=== PATIENT | female | born 1990 | race Caucasian/White ===

== ENCOUNTER → 2016-10-11 | Outpatient (CLI) | payer BC, OTHER ==
[~2016-10-11] MED LIST: BCP DAILY
== END | disposition home or self-care (01) ==
LOC: C.PAPS 10:44
PROVIDERS: ATTEND Physician Assistant
DX: Z12.4 Encounter for screening for malignant neoplasm of cervix (principal)

== ENCOUNTER → 2017-06-04 | Outpatient (CLI) | payer BC ==
[2017-06-04 09:51] LABS: PROLACTIN 14.84 ng/mL
[2017-06-04 09:52] LABS: FOLLICLE STIMULAT HORMONE 8.39 IU/L
== END | disposition home or self-care (01) ==
LOC: C.LAB1850 07:07
PROVIDERS: ATTEND Obstetrics & Gynecology
DX: Z31.41 Encounter for fertility testing (principal)

== ENCOUNTER → 2017-06-11 | Outpatient (CLI) | payer BC ==
--- NOTE | 2017-06-11 11:31 | DIAGNOSTIC IMAGING REPORT ---
HYSTEROSALPINGOGRAM CLINICAL HISTORY: Infertility. COMPARISON STUDY: No previous studies for comparison. Fluoroscopy time: 0.2 minutes. FINDINGS: Hysterosalpingogram was performed by Dr. Martines. The cervix was cannulated and water-soluble contrast was instilled. 3 fluoroscopic images demonstrate normal uterine morphology with patent bilateral fallopian tubes. There was free spillage bilaterally. No abnormality was identified. A few gas bubbles were noted. IMPRESSION: Normal hysterosalpingogram. Patent bilateral fallopian tubes. Electronically signed by: Frederic Woodard M.D. 06/11/2017 11:30 AM Dictated Date/Time: 06/11/2017 11:29 AM
--- NOTE | 2017-06-11 11:42 | OPERATIVE REPORT ---
DATE OF OPERATION: 06/11/2017 PREOPERATIVE DIAGNOSIS: Female infertility. POSTOPERATIVE DIAGNOSIS: Same. PROCEDURE: Hysterosalpingogram. SURGEON: Dr. Cristhian Martines. STRAIGHT TRUCK DRIVER: None. ESTIMATED BLOOD LOSS: None. COMPLICATIONS: None. FINDINGS: Normal uterus and fallopian tubes with good free spill. DESCRIPTION OF PROCEDURE: Discussed the procedure with the patient risks and benefits. The procedure was done sterilely. Speculum placed in the vagina. Cervix visualized, grasped with single tooth tenaculum and then the cervical servomechanism designer with the radiopaque dye was attached to the cervix. Note Betadine had been applied to the cervix as well. We injected dye and normal appearing uterus and good free spill of dye from both left and right fallopian tubes. Thus, a normal procedure. Instruments removed from the cervix and vagina. The patient tolerated the procedure well. I attest to the content of the Intraoperative Record and any orders documented therein. Any exception s are noted below.
== END | disposition home or self-care (01) ==
LOC: C.RAD 10:38
PROVIDERS: ATTEND Obstetrics & Gynecology
DX: Z31.41 Encounter for fertility testing (principal)

== ENCOUNTER → 2017-06-29 | Outpatient (CLI) | payer BC | END | disposition home or self-care (01) | LOC: C.LAB1850 10:46 | PROVIDERS: ATTEND Obstetrics & Gynecology | DX: Z31.41 Encounter for fertility testing (principal) ==

== ENCOUNTER → 2017-07-11 | Outpatient (CLI) | payer BC | END | disposition home or self-care (01) | LOC: C.LAB1850 13:15 | PROVIDERS: ATTEND Physician Assistant | DX: R94.6 Abnormal results of thyroid function studies (principal) ==

== ENCOUNTER → 2017-11-18 | Outpatient (CLI) | payer BC | END | disposition home or self-care (01) | LOC: C.LAB1850 12:18 | PROVIDERS: ATTEND Physician Assistant | DX: R94.6 Abnormal results of thyroid function studies (principal) ==

== ENCOUNTER → 2017-12-10 | Outpatient (CLI) | payer BC | END | disposition home or self-care (01) | LOC: C.LAB1850 13:28 | PROVIDERS: ATTEND Obstetrics & Gynecology | DX: N97.9 Female infertility, unspecified (principal) ==

== ENCOUNTER 2020-07-31 07:54 | Inpatient (IN) ==
[2020-07-31] MEDS ORDERED: OXYTOCIN 30 UNITS/500 ML BAG IV PRN ×3 (08:25→23:32)
[2020-07-31] MEDS ORDERED: PATIENT'S HEIGHT AND/OR WEIGHT NEEDED SCH (08:45)
[2020-07-31 08:57] LABS: Hematocrit (blood only) 35.9 % (37-47); Hemoglobin 12.7 g/dL (12.0-16.0); Mean Corpuscular Hgb Conc 35.4 g/dL (32-36); Mean Corpuscular Volume 87.6 fL (80-100); Mean Platelet Volume 11.2 fL (7.4-10.4); Platelet Count 131 K/uL (130-400); RDW Coefficient of Variation 13.3 % (11.5-14.5); RDW Standard Deviation 42.7 fL (36.4-46.3); White Blood Count 8.33 K/uL (4.8-10.8)
[2020-07-31] MEDS: LACTATED RINGER'S 1,000 ML IV PRN ×3 (09:30→18:32)
--- NOTE | 2020-07-31 11:00 | History & Physical Report ---
Date of Service July 31, 2020 Assessment & Plan (1) PROM (premature rupture of membranes): (2) Lab test positive for detection of COVID-19 virus: (3) Meconium in amniotic fluid: admit, iv, labs. fhts categ 1. offered pitocin augmentation now. epidural ok when desires. reviewed mec stained fluid. patient and partner given chance to ask ?s and deny further questions at this time. Admission and Anticipated Discharge Date Admission Date: July 31, 2020 History of Present Illness Chief Complaint: water broke at 645am today Primary Care Provider: NO PCP 30yo at 37+wks ega presents with cc as noted. Some ctx, not too painful. Fluid was clear at first but since being here noted to have meconium. +FM. PNC uncomplicated PNL rh pos, ri, gbs neg OBH: g1 GYNH: nl pap, no stds pmh: ibs Allergies Allergy/AdvReac Type Severity Reaction Status Date / Time Penicillins Allergy Intermediate HIVES Verified 07/29/20 15:57 amoxicillin Allergy Verified 07/29/20 15:57 ciprofloxacin Allergy Verified 07/29/20 15:57 Home Medications Medication Instructions Recorded Confirmed Type calcium carbonate [Tums 500] 500 mg PO BID 07/13/20 07/29/20 History famotidine [Pepcid AC] 20 mg PO DAILY 07/13/20 07/29/20 History prenat.vits,ricardo,[id number] 1 tab PO DAILY 07/13/20 07/29/20 History [ Vitamin] Patient History Medical History (Updated 07/31/20 @ 11:04 by Sadie Montano MD, FACOG) Female infertility, unspecified MRSA (methicillin resistant Staphylococcus aureus) Lower L abd. and L leg 2011 Surgical History History of foot surgery to remove a needle she stepped on History of knee surgery torn meniscus right S/P wisdom tooth extraction Family History Mother Kidney disease kidney removed Hypertension Father Dyslipidemia Aunt ALS (amyotrophic lateral sclerosis) paternal Denies family history of Ovarian cancer Breast cancer Colorectal cancer Social History Smoking Status: Never smoker Second Hand Exposure: No; Hx Alcohol Use: No Hx Substance Use: No Preferred Language: Divehi Beliefs That Will Affect Care: None marital status: marital status details: Domo (33)- [phone] Current Living Situation: Spouse Current Living Situation Comment: , no pets current occupational status: employed current occupation: education Feels Safe at Home: Yes Assistive Devices: None Physical Exam 2 Constitutional: WD/WN, vitals as above Respiratory: normal respiratory effort, lungs clear to auscultation Cardiovascular: Rate/Rhythm: regular rate and regular rhythm Gastrointestinal (Abdomen): soft gravid nt Musculoskeletal: no edema nontender calves Neurologic: grossly normal Psychiatric: A+Ox3, euthymic affect Genitourinary: OB Exam Abdomen: + estimated weight (7-8#, cephalic) Manual OB Exam: + cervical dilation 4 cm, + cervical effacement (75%), + station -2 and + amniotic fluid (gross srom) meconium OB Exam Monitor Tracing: + external FHT monitor used (140 mod variability), + external uterine monitor used (q2-4), + category I and + normal FHT variability Results & Data ([facility]) Vital Signs (Past 12 Hours) Vital Signs Temp Pulse Resp BP 07/31/20 08:02 98.2 F 90 20 130/79 Coding Level of Care Code None Diagnoses PROM (premature rupture of membranes) O42.90 Lab test positive for detection of COVID-19 virus U07.1 Meconium in amniotic fluid P96.83
[2020-07-31] MEDS ORDERED: BUPIVACAINE 0.25% 30 ML VIAL ONE (13:11)
[2020-07-31] MEDS ORDERED: ePHEDrine sulfate 50 MG/ML AMP ONE (13:11)
[2020-07-31] MEDS ORDERED: SODIUM CHLORIDE 0.9% INJ 10 ML VIAL ONE (13:11)
[2020-07-31] MEDS ORDERED: fentaNYL citrate 100 MCG/2 ML VIAL ONE (13:11)
[2020-07-31] MEDS ORDERED: fentaNYL 2MCG/ML ROPIVACAINE 1.25MG/ML 100 ML BAG EPI ONE (13:12)
[2020-07-31] MEDS ORDERED: ePHEDrine sulfate 50 MG/ML AMP IV PRN (13:50)
[2020-07-31] MEDS ORDERED: diphenhydrAMINE 50 MG/ML VIAL IV PRN (13:50)
[2020-07-31] MEDS ORDERED: NALOXONE HCL 1 MG in SODIUM CHLORIDE 0.9% 1000ML 1,000 ML IV PRN (13:50)
[2020-07-31] MEDS ORDERED: ONDANSETRON INJ 2 MG/ML 2 ML VIAL IV PRN (13:50)
[2020-07-31] MEDS ORDERED: NALOXONE HCL 0.4 MG/1 ML VIAL/CARP IV PRN (13:50)
--- NOTE | 2020-07-31 13:53 | Anesthesiology Consultation ---
Date of Service July 31, 2020 The patient is Covid 19 positive and is in an isolation room. Assessment & Plan Chart Review Chart Review: Patient NOT seen in Pre Admission Testing and Acceptable Risk for Labor Epidural Consults Requested none ASA ASA2 Proposed Anesthesia Anesthesia Type: Labor Epidural and CSE Risk / Benefits Reviewed With: PT / POA / Parent / Guardian, Accepts Plan and Informed Consent Obtained History Height/Weight Weight: 97.522 kg Allergies Allergy/AdvReac Type Severity Reaction Status Date / Time Penicillins Allergy Intermediate HIVES Verified 07/29/20 15:57 amoxicillin Allergy Verified 07/29/20 15:57 ciprofloxacin Allergy Verified 07/29/20 15:57 Medications Home Medications Medication Instructions Recorded Confirmed Last Taken calcium carbonate [Tums 500] 500 mg PO BID 07/13/20 07/29/20 07/13/20 03:00 famotidine [Pepcid AC] 20 mg PO DAILY 07/13/20 07/29/20 07/13/20 07:00 prenat.vits,ricardo,gua-[id number] 1 tab PO DAILY 07/13/20 07/29/20 07/12/20 20:30 [ Vitamin] Active Medications Generic Name Dose Route Start Last Admin Trade Name Freq PRN Reason Stop Dose Admin Lactated Ringer's 1,000 mls @ 125 mls/hr 07/31/20 08:25 07/31/20 13:47 Lr IV 08/02/20 08:24 999 mls/hr .Q8H PRN Administration L&D Protocol Protocol Oxytocin 30 units in 500 mls @ 3 mls/hr 07/31/20 10:56 07/31/20 12:37 Pitocin IV 08/02/20 10:55 0.18 units/hr .Q24H PRN 3 mls/hr Labor Induction/Augmentation Titration Protocol 0.18 UNITS/HR NPO Date Last Intake of Fluids: 07/31/20 Time Last Intake of Fluids: 12:00 Date Last Intake of Solids: 07/31/20 Time Last Intake of Solids: 09:00 Past Medical History Medical History Female infertility, unspecified GERD (gastroesophageal reflux disease) Lab test positive for detection of COVID-19 virus 07/31/20 MRSA (methicillin resistant Staphylococcus aureus) Lower L abd. and L leg 2012 Exercise / Class Metabolic Activity II 4-5 Yardwork/Stairs/Walk up hill Past Family History Family History Mother Kidney disease kidney removed Hypertension Father Dyslipidemia Aunt ALS (amyotrophic lateral sclerosis) paternal Denies family history of Ovarian cancer Breast cancer Colorectal cancer Past Surgical History Surgical History History of foot surgery to remove a needle she stepped on History of knee surgery torn meniscus right S/P wisdom tooth extraction Past Anesthesia History No Hx of Anesthesia Complications and No Family Hx of Anesthesia Complications History of PONV No Hx of PONV and No Hx of Motion Sickness Social History Smoking Status: Never smoker Hx Alcohol Use: No Hx Substance Use: No substance use type: does not use Review of Systems no chest pain or sob Physical Exam Vital Signs Last Vital Signs Temp 36.8 C 07/31/20 08:02 Pulse 93 H 07/31/20 12:00 Resp 20 07/31/20 08:02 BP 135/84 07/31/20 12:00 ENMT Mouth: no TMJ abnormality Thyromental Distance: > or= 3.5 Finger Breadths Mallampati Class: II Neck normal visual inspection Respiratory normal respiratory effort Auscultation: lungs clear to auscultation bilaterally Cardiovascular Rate/Rhythm: regular rate and regular rhythm Musculoskeletal Spine: normal cervical ROM Neurologic moves all extremities Psychiatric Orientation: alert and oriented x 3 Testing Laboratory Results 07/31/20 08:44
[2020-07-31] MEDS: fentaNYL 2MCG/ML ROPIVACAINE 1.25MG/ML 100 ML BAG EPI PRN ×2 (14:09→20:09)
[2020-07-31] MEDS ORDERED: CALCIUM CARBONATE 500 MG CHEWABLE TAB PO PRN (17:12)
--- NOTE | 2020-07-31 17:41 | Labor Progress Brief Note ---
Date of Service July 31, 2020 Subjective Reason For Note: Routine Evaluation feels nausea and requested tums, no pain with epidural Assessment & Plan (1) PROM (premature rupture of membranes): (2) Lab test positive for detection of COVID-19 virus: (3) Meconium in amniotic fluid: good cx change. fhts categ 2. c/w pit Admission and Anticipated Discharge Date Admission Date: July 31, 2020 Physical Exam Constitutional: WD/WN, vitals as above Genitourinary: Manual OB Exam: + cervical dilation (anterior lip on right thick) 7 cm, + cervical effacement 90% and + station -1 OB Exam Monitor Tracing: + external FHT monitor used (125 mod variability), + external uterine monitor used (q2), + category II, + normal FHT variability and + variable decelerations Results & Data ([facility]) Vital Signs (Past 12 Hours) Vital Signs Temp Pulse Resp BP Pulse Ox 07/31/20 17:37 92 H 99 07/31/20 17:34 93 H 122/69 07/31/20 17:32 68 100 07/31/20 17:27 61 100 07/31/20 17:22 61 100 07/31/20 17:19 65 118/70 07/31/20 17:17 64 100 07/31/20 17:12 69 100 07/31/20 17:07 64 100 07/31/20 17:03 80 108/65 07/31/20 17:02 63 100 07/31/20 16:57 69 100 07/31/20 16:54 97.9 F 20 07/31/20 16:52 72 100 07/31/20 16:49 67 109/68 07/31/20 16:47 74 100 07/31/20 16:42 96 H 100 07/31/20 16:41 101 H 92 07/31/20 16:37 81 99 07/31/20 16:33 64 110/65 07/31/20 16:32 63 100 07/31/20 16:27 75 99 07/31/20 16:22 66 99 07/31/20 16:18 63 111/68 07/31/20 16:17 66 98 07/31/20 16:12 66 100 07/31/20 16:07 77 100 07/31/20 16:04 67 133/79 07/31/20 16:02 65 100 07/31/20 15:57 77 100 07/31/20 15:52 75 100 07/31/20 15:48 71 126/75 07/31/20 15:47 67 100 07/31/20 15:42 73 100 07/31/20 15:37 67 100 07/31/20 15:33 67 127/72 07/31/20 15:32 76 100 07/31/20 15:27 72 100 07/31/20 15:22 64 100 07/31/20 15:19 71 113/71 07/31/20 15:17 72 100 07/31/20 15:12 72 100 07/31/20 15:08 61 110/66 07/31/20 15:07 61 100 07/31/20 15:02 63 100 07/31/20 15:00 97.9 F 07/31/20 14:57 61 100 07/31/20 14:52 63 100 07/31/20 14:49 63 109/61 07/31/20 14:47 64 100 07/31/20 14:42 62 100 07/31/20 14:37 60 100 07/31/20 14:33 63 108/64 07/31/20 14:32 66 99 07/31/20 14:27 61 100 07/31/20 14:22 63 100 07/31/20 14:17 70 109/62 100 07/31/20 14:16 68 107/64 07/31/20 14:12 65 100 07/31/20 14:10 68 108/63 07/31/20 14:09 68 114/71 07/31/20 14:07 71 121/73 100 07/31/20 14:02 74 100 07/31/20 13:57 85 100 07/31/20 13:52 91 H 100 07/31/20 13:02 98.2 F 07/31/20 12:12 98.2 F 07/31/20 12:00 93 H 135/84 07/31/20 10:30 97.9 F 07/31/20 08:30 98.2 F 20 07/31/20 08:02 98.2 F 90 20 130/79 Coding Level of Care Code None Diagnoses PROM (premature rupture of membranes) O42.90 Lab test positive for detection of COVID-19 virus U07.1 Meconium in amniotic fluid P96.83
--- NOTE | 2020-07-31 20:33 | Labor Progress Brief Note ---
Date of Service July 31, 2020 Subjective Reason For Note: Routine Evaluation feeling some pressure on and off. bladder just drained. Assessment & Plan (1) PROM (premature rupture of membranes): (2) Meconium in amniotic fluid: (3) Lab test positive for detection of COVID-19 virus: doing well, categ 2 fetus, anticipate 2nd stage soon. Admission and Anticipated Discharge Date Admission Date: July 31, 2020 Physical Exam Constitutional: WD/WN, vitals as above Genitourinary: Manual OB Exam: + cervical dilation (rim), + cervical effacement 100% and + station 0 and + 1 OB Exam Monitor Tracing: + external FHT monitor used (140 mod variability, occas variables), + external uterine monitor used (q2), + category II, + normal FHT variability and + variable decelerations pit at 1 Results & Data ([facility]) Vital Signs (Past 12 Hours) Vital Signs Temp Pulse Resp BP Pulse Ox 07/31/20 20:27 70 99 07/31/20 20:22 83 100 07/31/20 20:17 97 H 100 07/31/20 20:12 88 99 07/31/20 20:07 87 100 07/31/20 20:04 73 119/76 07/31/20 20:02 74 100 07/31/20 19:57 81 100 07/31/20 19:52 72 100 07/31/20 19:49 80 135/87 07/31/20 19:47 76 100 07/31/20 19:42 74 100 07/31/20 19:37 82 99 07/31/20 19:33 75 139/73 07/31/20 19:32 75 100 07/31/20 19:30 99.0 F 20 07/31/20 19:27 90 100 07/31/20 19:22 99 H 100 07/31/20 19:17 123 H 99 07/31/20 19:12 73 100 07/31/20 19:07 76 100 07/31/20 19:04 75 128/69 07/31/20 19:02 75 100 07/31/20 18:57 67 100 07/31/20 18:52 71 100 07/31/20 18:49 70 120/74 07/31/20 18:47 68 100 07/31/20 18:42 76 100 07/31/20 18:37 83 100 07/31/20 18:35 88 130/69 07/31/20 18:32 95 H 100 07/31/20 18:27 86 100 07/31/20 18:22 82 100 07/31/20 18:19 81 120/75 07/31/20 18:17 92 H 100 07/31/20 18:12 77 100 07/31/20 18:07 68 100 07/31/20 18:04 67 123/66 07/31/20 18:02 67 100 07/31/20 17:57 70 100 07/31/20 17:52 74 100 07/31/20 17:49 81 122/66 07/31/20 17:47 85 100 07/31/20 17:42 84 100 07/31/20 17:37 92 H 99 07/31/20 17:34 93 H 122/69 07/31/20 17:32 68 100 07/31/20 17:27 61 100 07/31/20 17:22 61 100 07/31/20 17:19 65 118/70 07/31/20 17:17 64 100 07/31/20 17:12 69 100 07/31/20 17:07 64 100 07/31/20 17:03 80 108/65 07/31/20 17:02 63 100 07/31/20 16:57 69 100 07/31/20 16:54 97.9 F 20 07/31/20 16:52 72 100 07/31/20 16:49 67 109/68 07/31/20 16:47 74 100 07/31/20 16:42 96 H 100 07/31/20 16:41 101 H 92 07/31/20 16:37 81 99 07/31/20 16:33 64 110/65 07/31/20 16:32 63 100 07/31/20 16:27 75 99 07/31/20 16:22 66 99 07/31/20 16:18 63 111/68 07/31/20 16:17 66 98 07/31/20 16:12 66 100 07/31/20 16:07 77 100 07/31/20 16:04 67 133/79 07/31/20 16:02 65 100 07/31/20 15:57 77 100 07/31/20 15:52 75 100 07/31/20 15:48 71 126/75 07/31/20 15:47 67 100 07/31/20 15:42 73 100 07/31/20 15:37 67 100 07/31/20 15:33 67 127/72 07/31/20 15:32 76 100 07/31/20 15:27 72 100 07/31/20 15:22 64 100 07/31/20 15:19 71 113/71 07/31/20 15:17 72 100 07/31/20 15:12 72 100 07/31/20 15:08 61 110/66 07/31/20 15:07 61 100 07/31/20 15:02 63 100 07/31/20 15:00 97.9 F 20 07/31/20 14:57 61 100 07/31/20 14:52 63 100 07/31/20 14:49 63 109/61 07/31/20 14:47 64 100 07/31/20 14:42 62 100 07/31/20 14:37 60 100 07/31/20 14:33 63 108/64 07/31/20 14:32 66 99 07/31/20 14:27 61 100 07/31/20 14:22 63 100 07/31/20 14:17 70 109/62 100 07/31/20 14:16 68 107/64 07/31/20 14:12 65 100 07/31/20 14:10 68 108/63 07/31/20 14:09 68 114/71 07/31/20 14:07 71 121/73 100 07/31/20 14:02 74 100 07/31/20 13:57 85 100 07/31/20 13:52 91 H 100 07/31/20 13:02 98.2 F 20 07/31/20 12:12 98.2 F 20 07/31/20 12:00 93 H 135/84 07/31/20 10:30 97.9 F 20 Coding Level of Care Code None Diagnoses PROM (premature rupture of membranes) O42.90 Meconium in amniotic fluid P96.83 Lab test positive for detection of COVID-19 virus U07.1
[2020-07-31] MEDS ORDERED: FAMOTIDINE 20 MG TAB PO STA (21:12)
[2020-07-31] MEDS ORDERED: ACETAMINOPHEN 325 MG TAB PO PRN (23:32)
[2020-07-31] MEDS ORDERED: oxyCODONE/ACETAMINOPHEN 5mg/325mg TAB PO PRN (23:32)
--- NOTE | 2020-07-31 23:36 | Delivery Summary ---
Vaginal Delivery Summary Date of Service July 31, 2020 Vaginal Delivery Summary and 2nd Degree LAC The patient dilated to complete and pushed to deliver a viable male Apgars 8 and 9 via over 2nd degree perineal laceration. Mouth and nose bulb suctioned at perineum. Shoulders and body delivered with ease. Infant was vigorous and crying at . Cord clamped when pulsations ceased and infant to maternal abdomen where the cord was then doubly clamped and cut. Placenta delivered spontaneously and intact, three-vessel cord. Hemostasis not achieved with dilute pitocin and uterine massage and drainage of the bladder for approximately 100 cc under sterile conditions. Uterus swept x 1 with no remaining products of conception. Bimanual massage initiated and then rectal cytotec 800mg given. SMITA still not contracted well evidenced by remaining clots and after bp evaluated, hemabate IM given. Uterus tone improving overall and SMITA marci down. Laceration repaired in usual fashion with 3-0 vicryl. Cervix and sulci intact. EBL 600 cc. Mother and baby stable recovery. Circumstances of PPH reviewed with couple and medications used to help reviewed, continue with dilute pitocin. Patient made aware of SE of diarrhea is possible. [facility] [place] Vaginal Delivery Charge Delivery Type Details: and 2nd Degree LAC
[2020-07-31] MEDS ORDERED: BENZOCAINE 20% AER SPR 82.5 GM CAN EXT PRN (23:40)
[2020-07-31] MEDS ORDERED: CARBOPROST TROMETHAMINE 250 MCG/ML AMPUL IM ONE (23:40)
[2020-07-31] MEDS ORDERED: HYDROCORTISONE ACETATE 25 MG SUPP PR PRN (23:40)
[2020-07-31] MEDS ORDERED: miSOPROStoL 200 MCG TAB PR ONE (23:40)
[2020-07-31] MEDS ORDERED: DIPHTHERIA/TETANUS/PERTUSSIS 0.5 ML SYR/VIAL IM ONE (23:40)
[2020-07-31] MEDS: OXYTOCIN 20 UNITS in LACTATED RINGER'S 1,000 ML IV SCH (23:57)
[2020-08-01] MEDS ORDERED: KETOROLAC 30 MG/ML VIAL IV ONE (01:19)
[2020-08-01] MEDS ORDERED: LOPERAMIDE HCL 2 MG CAP PO STA (01:21)
[2020-08-01] MEDS ORDERED: ONDANSETRON INJ 2 MG/ML 2 ML VIAL ONE (01:35)
[2020-08-01] MEDS: SUPERCREAM 0.870% 15 GM JAR EXT PRN ×2 (02:13→21:24)
--- NOTE | 2020-08-01 07:22 | Obstetrical Progress Note ---
Date of Service August 01, 2020 Assessment & Plan (1) examination following vaginal delivery: (2) hemorrhage: (3) Lab test positive for detection of COVID-19 virus: stable, routine care. hgb pending. rh pos, ri. Day #:: 1 Subjective Ambulation: ambulating normally Voiding: no voiding problems Diet Tolerance:: regular diet Lochia:: Small Feeding Type:: breast feeding having some cramps, pain meds help. going well. wants to get epidural cath out of her back. voiding well. codi po. Physical Exam Constitutional WD/WN, vitals as above Respiratory normal respiratory effort, lungs clear to auscultation Cardiovascular Rate/Rhythm: regular rate and regular rhythm Gastrointestinal (Abdomen) Inspection/Auscultation: abdomen normal to inspection Percussion/Palpation: abdomen soft; abdomen nontender Fundus firm 1cm down Musculoskeletal nt calves no edema Neurologic grossly normal Psychiatric A+Ox3, euthymic affect Results & Data ([facility]) Vital Signs (Past 12 Hours) Vital Signs Temp Pulse Pulse Resp BP BP Pulse Ox 08/01/20 02:25 98.2 F 64 20 111/70 95 08/01/20 01:46 64 152/90 H 08/01/20 01:31 70 138/84 08/01/20 01:16 75 139/84 08/01/20 01:15 18 08/01/20 01:01 70 141/78 H 08/01/20 00:46 76 140/77 08/01/20 00:32 66 141/78 H 08/01/20 00:16 93 H 145/77 H 08/01/20 00:15 18 08/01/20 00:01 82 141/70 H 07/31/20 23:46 81 142/65 H 07/31/20 23:45 98.6 F 18 07/31/20 23:31 86 132/61 07/31/20 23:30 18 07/31/20 23:24 88 134/62 07/31/20 23:19 95 H 133/66 07/31/20 23:15 101 H 141/67 H 07/31/20 23:05 86 94 07/31/20 23:02 113 H 99 07/31/20 22:57 66 100 07/31/20 22:52 68 99 07/31/20 22:47 88 100 07/31/20 22:42 80 99 07/31/20 22:37 127 H 99 07/31/20 22:34 82 136/72 07/31/20 22:32 77 100 07/31/20 22:27 73 100 07/31/20 22:22 86 99 07/31/20 22:21 106 H 92 07/31/20 22:17 103 H 97 07/31/20 22:12 110 H 96 07/31/20 22:07 126 H 97 07/31/20 22:04 92 H 129/77 07/31/20 22:02 112 H 90 07/31/20 21:57 103 H 100 07/31/20 21:52 119 H 99 07/31/20 21:47 94 H 99 07/31/20 21:42 76 98 07/31/20 21:37 75 100 07/31/20 21:32 77 99 07/31/20 21:30 98.8 F 18 07/31/20 21:27 85 99 07/31/20 21:22 80 100 07/31/20 21:19 88 122/77 07/31/20 21:17 85 100 07/31/20 21:12 80 99 07/31/20 21:07 72 99 07/31/20 21:03 71 116/57 L 07/31/20 21:02 77 98 07/31/20 20:57 74 98 07/31/20 20:52 75 98 07/31/20 20:49 68 115/64 07/31/20 20:47 68 98 07/31/20 20:42 68 99 07/31/20 20:37 67 99 07/31/20 20:33 83 122/66 07/31/20 20:32 69 99 07/31/20 20:27 70 99 07/31/20 20:22 83 100 07/31/20 20:17 97 H 100 07/31/20 20:12 88 99 07/31/20 20:07 87 100 07/31/20 20:04 73 119/76 07/31/20 20:02 74 100 07/31/20 19:57 81 100 07/31/20 19:52 72 100 07/31/20 19:49 80 135/87 07/31/20 19:47 76 100 07/31/20 19:42 74 100 07/31/20 19:37 82 99 07/31/20 19:33 75 139/73 07/31/20 19:32 75 100 07/31/20 19:30 99.0 F 20 07/31/20 19:27 90 100 07/31/20 19:22 99 H 100
[2020-08-01 07:32] LABS: Hematocrit (blood only) 31.2 % (37-47); Hemoglobin 10.7 g/dL (12.0-16.0)
[2020-08-01] MEDS: OXYTOCIN 20 UNITS in LACTATED RINGER'S 1,000 ML IV SCH (08:00)
[2020-08-01] MEDS: IBUPROFEN 600 MG TAB PO PRN ×2 (08:39→23:01)
[2020-08-01] MEDS: PRENATAL VITAMIN 1 TAB PO SCH (08:39)
[2020-08-01] MEDS: DOCUSATE SODIUM 100 MG CAP PO SCH ×2 (08:40→19:43)
--- NOTE | 2020-08-01 08:42 | Anesthesia Procedure Note ---
Date of Service August 01, 2020 Anesthesia Post Epidural Note Vital Signs Vital Signs: Temp Pulse Resp BP Pulse Ox 36.9 C 76 20 108/73 95 08/01/20 07:20 08/01/20 07:20 08/01/20 07:20 08/01/20 07:20 08/01/20 07:20 Pain Intensity Bilateral Episiotomy/Laceration: Pain Intensity: 4 Bilateral Lower Abdomen: Pain Intensity: 2 Notes Mental Status: alert / awake / arousable and participated in evaluation Nausea / Vomiting: adequately controlled Pain: adequately controlled Airway Patency, RR, SpO2: stable & adequate BP & HR: stable & adequate Hydration State: stable & adequate Neuraxial Anesthesia: was administered and sensory block is resolving Anesthetic Complications: no major complications apparent Epidural: Removed without complications and With tip intact
[2020-08-01] MEDS: FAMOTIDINE 20 MG TAB PO SCH (15:39)
--- NOTE | 2020-08-02 06:19 | Obstetrical Progress Note ---
Date of Service August 02, 2020 Assessment & Plan (1) examination following vaginal delivery: (2) Lab test positive for detection of COVID-19 virus: PP doing well. Plan d/c home today. f/u in office in 6 weeks. Patient having no issues with COVID at present. Advised to call pcp if having issues. Instructions given. Day #:: 2 Subjective Ambulation: ambulating normally Voiding: no voiding problems Passing Gas:: Yes Diet Tolerance:: regular diet Lochia:: Small Feeding Type:: breast feeding Physical Exam Constitutional WD/WN, vitals as above Neck trachea midline, no thyromegaly Respiratory normal respiratory effort, lungs clear to auscultation Cardiovascular RRR, no murmur, no edema Extremities: no edema Gastrointestinal (Abdomen) soft, nt, nd, ff/nt at 2 below u Psychiatric A+Ox3, euthymic affect Results & Data ([facility]) Vital Signs (Past 12 Hours) Vital Signs Temp Pulse Resp BP Pulse Ox 08/01/20 23:40 36.7 C 79 16 122/75 97 08/01/20 20:00 36.8 C 86 18 122/73 96
[2020-08-02] MEDS: PRENATAL VITAMIN 1 TAB PO SCH (08:31)
[2020-08-02] MEDS: FAMOTIDINE 20 MG TAB PO SCH (08:31)
[2020-08-02] MEDS: DOCUSATE SODIUM 100 MG CAP PO SCH (08:33)
== END 2020-08-02 11:00 | disposition home or self-care (01) | DRG 805 ==
LOC: OPB 07:54 → 4S1 07:55 → 4W 09:28 → 3W 08-01 03:24